=== PATIENT | male | born 1975 | race Caucasian/White ===

== ENCOUNTER 2024-12-23 06:50 | Outpatient (OUT) | payer BC, SELFPAY ==
[2024-12-23 07:29] LABS: Basophils Absolute Auto 0.1 10^3/uL (0.0-0.1); Basophils Percent Auto 1.2 % (0.2-2.0); Eosinophils Absolute Auto 0.3 10^3/uL (0.0-0.7); Eosinophils Percent Auto 4.2 % (0.9-7.0); Hematocrit 46.1 % (42.0-54.0); Hemoglobin 15.2 g/dL (14.0-18.0); Immature Granulocytes Abs Auto 0.01 10^3/uL (0.00-0.03); Immature Granulocytes Pct Auto 0.2 % (0.0-0.5); Lymphocytes Absolute Auto 2.4 10^3/uL (1.2-3.8); Mean Corpuscular Hemoglobin 27.2 pg (25.9-34.0); Mean Corpuscular Volume 82.5 fL (80.0-94.0); Mean Platelet Volume 9.3 fL (9.5-13.5); Monocytes Absolute Auto 0.6 10^3/uL (0.3-0.8); Monocytes Percent Auto 9.6 % (1.7-12.0); Neutrophils Absolute Auto 2.8 10^3/uL (1.4-6.5); Neutrophils Percent Auto 45.8 % (43.0-75.0); Platelet Count 288 10^3/uL (150-450); Red Blood Count 5.59 10^6/uL (4.70-6.10); Red Cell Distribution Width 14.2 % (11.0-15.0)
[2024-12-23 08:17] LABS: Alanine Aminotransferase 47 U/L (16-63); Albumin Globulin Ratio 1.3; Albumin Level 4.1 g/dL (3.4-5.0); Alkaline Phosphatase 64 U/L (46-116); Anion Gap 11.1; Aspartate Amino Transferase 26 U/L (15-37); BUN Creatinine Ratio 13.3; Bilirubin Total 0.5 mg/dL (0.2-1.0); Calcium 9.3 mg/dL (8.5-10.1); Carbon Dioxide 26.9 mmol/L (21.0-32.0); Chloride 107 mmol/L (98-107); Chol HDL Ratio 2.9; Cholesterol 170 mg/dL (<=200); Estimated GFR (African America >60 (>=60 mL/min/1.73m^2); Estimated GFR (Non-African Ame 56 (>=60 mL/min/1.73m^2); Globulin 3.1 g/dL; Glucose 103 mg/dL (74-106); HDL Cholesterol 59 mg/dL (40-60); LDL Cholesterol Calculated 90.6 mg/dL; Sodium 141 mmol/L (136-145); Total Protein 7.2 g/dL (6.4-8.2); Triglycerides 102 mg/dL (<=150); VLDL CHOLESTEROL 20.4 mg/dL
[2024-12-23 08:27] LABS: Prostate Specific Antigen Scrn 1.75 ng/mL (<=4.00)
== END 2024-12-23 06:51 | disposition home or self-care (01) ==
LOC: LAB 06:56
PROVIDERS: PCP Nurse Practitioner Family; Visit Provider Nurse Practitioner Family
DX: Z00.00 Encounter for general adult medical examination without abnormal findings (principal); Z12.5 Encounter for screening for malignant neoplasm of prostate
CPT/HCPCS: 36415; 80053; 80061; 85025; G0103

== ENCOUNTER 2025-05-08 12:22 | Emergency (ER) | payer BC, SELFPAY ==
--- OUTSIDE RECORDS SUMMARY | 2024-03-17 09:03 | XMS_ITS ---
Author Organization The [facility] in [place] Address [address] [place] [address] Care Team Providers Care Railroad Dining Car Stewardess Name Role Phone Liborio HUERTALucian Primary Care Provider Unavail Ulysses Santiago Unavailable [phone] REASON FOR VISIT Appointment reschedule Encounters Encounter Location Date Provider Diagnosis Pulmonary Medicine [place] [address] [place] [address] 03/17/2024 Ulysses Ward Plan Of Treatment No Information Progress Notes * Irina ROPEREliaOB:1975 ([age] yo M)Acc No.[id number]:03/17/2024 Patient: Isrrael ABRAHAM :1975 A ge:48 Y S ex:Male Address:[address], [place] [address] * true * Date: Generated for Joycelyni marty/Famikg/eTransmitting on: 0 05/08/2025 12:29 PM EDT
--- OUTSIDE RECORDS SUMMARY | 2024-06-29 04:30 | XMS_ITS ---
Author Organization [facility] in [place] Address [address] [place] [address] Care Team Providers Care Nuts And Bolts Assembler Name Role Phone Lucian Capone DO Primary Care Provider Unavail able Ulysses Ward Unavailable [phone] Allergies No Known Allergies REASON FOR VISIT F/U-1 YR. ZAKI -MSC Medications Medication SIG (Take, Route, Fr equency, Duration) Notes Start Date End Date Status Melatonin 5 MG 1 tablet in the even ing Orally Once a day for 30 day(s) 07/02/2023 Active Social History Tobacco Use: Social History Observation Description Date Details (start date - stop date) Former Smoker NA - NA Tobacco Use/Smoking Question Answer Notes Patient is a former smoker How long has it been since y ou last smoked? > 10 years Additional Findings: Tobacco Non-User Ex-heavy c igarette smoker (20-30/day) Tobacco Control (Standard) Question Answer Notes Tobacco use: Former smoker How long has it been since y ou last smoked? Greater than 10 years Additional Findings: Tobacco non-user Ex -moderate cigarette smoker (10-19/day) Vital Signs Weight 225.8 lbs 06/29/2024 Height 68 in 06/29/2024 Blood pressure systolic 133 mm Hg 06/29/20 Blood pressure diastolic 82 mm Hg 024 Temperature 96.4 degrees Fahrenheit 06/29/20 24 Heart Rate 71 /min 06/29/2024 Respiratory Rate 18 /min 06/29/2024 BMI 34.33 kg/m2 06/29/2024 Oximetry 95 % 06/29/2024 Encounters Encounter Location Date Provider Diagnosis Pulmonary Medicine [place] [address] [place] [address] 06/29/2024 Ulysses Ward ZAKI (obstructive sleep apnea) G47.33 ; REM behavioral disorder G47.52 and History of tobacco abuse Z87.891 Assessments Encounter Date Diagnosis (ICD Code) Assessment Notes Treatment Notes Treatment Clinical Notes Section Notes 06/29/2024 ZAKI (obstructive sleep apnea) (ICD-10 - G47.33) Zyoc-yx-vvar encounter performed with the patient to document continued need for PAP therapy. -Current DME: [facility]-PS03/05/2021; Initial AHI: 8-Last PAP titration: 04/30/2021 @ [id number]-Qzycrzzoia was reviewed from 05/28/2024 - 06/26/2024-Total days used: (93%)-Total of all days >4 hours of use: (93%)-Current model, mode, & pressure: AirSense 11 AutoSet CPAP [id number] AHI: 1.5-Air leak (95th percentile): 14.3L/min-Mask/taylor rness fitting: Good seal, no problem with mask-Sleep quality: Improved sleep quality (outside of pain)-Daytime hypersomnolence: None reported-Recommen dations: He continues to have a significant improvement in his sleep quality with adequate resolution of apneic episodes. No change to pressure, etc. required. Continue using CPAP @ HS & naps. -Note: This wgoh-yj-papg visit comes with my authorization that the patient's DME may request to renew, reorder, and/or replace tubing, supplies, mask, and/or PAP device (if applicable). 06/29/2024 REM behavioral disorder (ICD-10 - G47.52) He continues to take melatonin. 06/29/2024 History of tobacco abuse (ICD-10 - Z87.891) 1ppd x15 years, quit 2010 This patient does not meet current LDCT criteria (e.g. age, time from cessation, # pack-years). Plan Of Treatment Treatment Notes Assessment Notes ZAKI (obstructive sleep apnea) Mxko-sl-nguc encounter performed with the patient to document continued need for PAP therapy. -Current DME: [facility]-PS03/05/2021; Initial AHI: 8-Last PAP titration: 04/30/2021 @ [id number] was reviewed from 05/28/2024 - 06/26/2024-Total days used: (93%)-Total of all days >4 hours of use: (93%)-Current model, mode, & pressure: AirSense 11 AutoSet CPAP [id number] AHI: 1.5-Air leak (95th percentile): 14.3L/min-Mask/harness fitting: Good seal, no problem with mask-Sleep quality: Improved sleep quality (outside of pain)-Daytime hypersomnolence: None reported-Recommendations: He continues to have a significant improvement in his sleep quality with adequate resolution of apneic episodes. No change to pressure, etc. required. Continue using CPAP @ HS & naps. -Note: This xfrv-si-gapc visit comes with my authorization that the patient's DME may request to renew, reorder, and/or replace tubing, supplies, mask, and/or PAP device (if applicable). REM behavioral disorder He continues to take melatonin. History of tobacco abuse This patient does not meet current LDCT criteria (e.g. age, time from cessation, # pack-years). Next Appt Details Follow Up: 1 Year, Reason: O SA - PAP Compliance Progress Notes * Pepper ROPEROB:1975 ([age] yo M)Acc No.[id number]:06/29/2024 Follow Up Patient: Isrrael ABRAHAM Provider: Carmela Ward DO :1975 A ge:49 Y S ex:Male Date:06/29/2024 Address:[address] [place] [address] [address], [facility] Pcp:Lucian Capone, DO Check In:08:17 AM ESTCheck O ut:08:34 AM EST Subjective: * Chief Complaints: * F /U-1 YR. ZAKI -MSC * HPI: G eneral: Here for 1 year PAP compliance. He is doing great on the CPAP. Has excellent compliance. Voices no issues with the pressure, mask, leak, etc. He does wake up at night sometimes, but it is due to leg pain (has patellar tendonitis) not d/t gasping or snoring. Denies any daytime hypersomnia or having to take naps. Overall, he said he is very happy with the CPAP. MA Intake Comments:. Patient presents for a follow-up for ZAKI. DME:[facility]. Patient is compliant with his PAP and denies any concerns or complaints today. Patient denies any issues or concerns with his machine. Patient reports great benefit from his PAP.. E pworth Sleepiness Scale: Koppel Sleepiness Scale C lonnie of dozing while sitting and reading:?0 - Never C lonnie of dozing while watching TV: 0 - Never C lonnie of dozing while sitting in a public place: 0 - Never C lonnie of dozing as a passenger in a car for an hour without a break: 0 - Never C lonnie of dozing while lying down in the afternoon to rest: 0 - Never C lonnie of dozing while sitting and talking to someone: 0 - Never C lonnie of dozing while sitting quietly after lunch: 0 - Never C lonnie of dozing in a stopped car for a few minutes in traffic: 0 - Never T OTAL SCORE: 0 * ROS: G eneral/Constitutional: Fever or sweats d enies. C hange of appetite d enies. C hills d enies. W eight Change d enies. H EENT: Dry mouth d enies. S ore throat d enies. O ral Ulcers d enies. P ost Nasal Drip D enies. C ongestion D enies. H oarseness?Denies. C ardiovascular: Tachycardia d enies. C hest pain d enies. P alpitations d enies. R espiratory: Chest tightness d enies. P leurisy D enies. D yspnea d enies. C ough d enies. H emoptysis d enies. W heezing d enies.? G astrointestinal: Acid Reflux/GERD/Heartburn d enies. D ysphagia d enies. M usculoskeletal: Arthralgias/joint pain D enies. S kin: Easy bruising d enies. R meli d enies. ? N eurologic: Seizures d enies. T remor d enies. H ematology: Abnormal Bleeding d enies. P sychiatric: Anxiety d enies. * Active Problem List G47.33 ZAKI (obstructive sle ep apnea) Modified On:07/02/2023U Status:confirmed G47.52 REM behavioral disor tomas Modified On:07/02/2023U Status:confirmed Z87.891 History of tobacco a buse Modified On:07/02/2023 Status:confirmed * Medical History: * Surgical History: D enies Past Surgical History * Hospitalization/Major Diagno stic Procedure: D enies Past Hospitalization * Family History: F ather: COPD, diagnosed with Unspecified heart disease. P aternal Grandfather: diagnosed with Unspecified heart disease. P aternal Grandmother: diagnosed with Diabetes mellitus without mention of complication, type II or unspecified type, not stated as uncontrolled. M aternal Grandmother: diagnosed with Diabetes mellitus without mention of complication, type II or unspecified type, not stated as uncontrolled. * Social History: T obacco Use: T obacco Control (Standard) T obacco use: F ormer smoker H ow long has it been since you last smoked??Greater than 10 years A dditional Findings: Tobacco non-user E x-moderate cigarette smoker (10-19/day) Electronic Cigarette use C urrent user N o LM: Additional Tobacco Questions N umber of Years Pt Smoked: 1 5 N umber of Packs per Day: 1 When did you stop smokin. 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 D rugs/Alcohol: D rugs H ave you used drugs other than those for medical reasons in the past 12 months? N o D oes the Patient have a History of Drug Abuse in the Past? N o Caffeine I ntake: 1 -2 cups per day Coffee Do you drink alcohol?: No. Do you smoke marijuana?: Denies. * Medications: T akingMelatonin 5 MG Tablet 1 tablet in the evening Orally Once a day Medication List reviewed and reconciled with the patientTaking Melatonin 5 MG Tablet 1 tablet in the evening Orally Once a day Medication List reviewed and reconciled with the patient * Allergies: N .K.D.A.no[Allergies Verified] Objective: * Vitals: W t:225.8lbs, Ht: 68 in, BP:sittin/82mm Hg, Temp:Forehead:96.4F, HR:71/min, RR:18/min, BMI:34.33Index, Oxygen sat %:Room Air:95%, Ht-cm: 172.72 cm, Wt-k.42 kg. * Examination: E xam: GENERAL APPEARANCE: A ppears stated age. Skin N ormal. Mouth P ink and moist. Oropharynx M allampati Class III. Trachea M idline. Chest N ormal. Respiratory Normal M ovements, E ffort N ormal. Auscultation N ormal breath sounds. Cardiac R egular rate and rhythm. Gastrointestinal N ormal. Vascular N o edema. Musculoskeletal N ormal posture. Neurological F ocal, intact. Psychiatric A lert and oriented x3. Mentation/Cognition N ormal. Assessment: * Assessment: 1. O SA (obstructive sleep apnea) - G47.33 (Primary) 2 . R EM behavioral disorder - G47.52 3 . H istory of tobacco abuse - Z87.891, 1ppd x15 years, quit 2010 Plan: * Treatment: 2. R EM behavioral disorder Notes: He continues to take melatonin. 3. H istory of tobacco abuse Notes: This patient does not meet current LDCT criteria (e.g. age, time from cessation, # pack-years).? * Procedure Codes: * Preventive Medicine: COVID Vaccination: H as patient had COVID Vaccination? COVID Vaccination N o Patient Refused Immunization Status: P neumovacc P t Refused. I nfluenza P t Refused. B oostrix 0 12/27/2015. Screenings/Counseling: F ALL RISK SCREENING Fall Risk Assessment: N o falls in the past year Are you afraid of falling? N o T OBACCO ACTION PLAN Patient counselled on the dangers of tobacco use and urged to quit. 1 Former Education on smoking effects provided?06/29/2024 Former F CHRISTIAN EXCLUSION Reason: P atient Reason refused/declined Type of Patient Reason: D rug declined by patient B [place] ACTION PLAN Above Normal BMI Follow-up D ietary management education, guidance, and counseling * Follow Up: 1 Year (Reason: ZAKI - PAP Compliance) * * Sign off status: Completed Visit Status: C HK (Check Out) true * Provider: Carmela Ward DO Date: 1 Generated for Printi ng/Famikg/eTransmitting on: 0 05/08/2025 12:29 PM EDT History and Physical Notes * HPI (History of Present Illness) Category Sub-Category Detail Notes Category Not es General Patient present s for a follow-up for ZAKI. DME:[facility]. Patient is compliant with his PAP and denies any concerns or complaints today. Patient denies any issues or concerns with his machine. Patient reports great benefit from his PAP. Koppel Sleepiness Scale Koppel Sleepiness Scale Chance of dozing while sitting and reading:: 0 - Never Chance of dozing while watching TV:: 0 - Never Chance of dozing while sitting in a publ ic place:: 0 - Never Chance of dozing as a passen reji in a car for an hour without a break:: 0 - Never Chance of dozing while lying down in the afternoon to rest:: 0 - Never Chance of dozing while sitting and talki ng to someone:: 0 - Never Chance of dozing while sitting quietly a fter lunch:: 0 - Never Chance of dozing in a stopped car for a few minutes in traffic:: 0 - Never TOTAL SCORE:: 0 Examination Category Sub-Category Detail Notes Category Not es Exam GENERAL APPEARANCE: Appears stated age Skin Normal Mouth [place] and moist Trachea Midline Chest Normal Respiratory Normal Movements, Ef fort Normal Auscultation Normal breath sounds Cardiac Regular rate and rhy thm Gastrointestinal Normal Vascular No edema Musculoskeletal Normal posture Neurological Focal, intact Psychiatric Alert and oriented x 3 Mentation/Cognition Normal Oropharynx Mallampati Class III
--- OUTSIDE RECORDS SUMMARY | 2024-06-30 04:00 | XMS_ITS ---
Author Organization The [facility] in [place] Address [address] [place] [address] Care Team Providers Care Tray Setter Name Role Phone Lucian Capone DO Primary Care Provider Unavail Ulysses Santiago Unavailable [phone] REASON FOR VISIT F/U-1 YR. ZAKI -MSC Encounters Encounter Location Date Provider Diagnosis Pulmonary Medicine [place] [address] [place] [address] 06/30/2024 Ulysses Ward Plan Of Treatment No Information Progress Notes * Pepper ROPEROB:1975 ([age] yo M)Acc No.[id number]:06/30/2024 UNLOCKED PROGRESS NOTE Follow Up Patient: Isrrael ABRAHAM Provider: Carmela Ward DO :1975 A ge:49 Y S ex:Male Date:06/30/2024 Address:[address] [facility] Pcp:Lucian Capone DO Subjective: * Chief Complaints: * 1 . F/U-1 YR. ZAKI -MSC. * Medical History: Objective: * Vitals: Assessment: Plan: * Treatment: * * Electronic signature of Chata Ward DO on 05/08/2025 at 12:29 PM EDT Sign off status: Pending Visit Status: O FF CANC (OFFICE CANCEL) * Provider: Carmela Ward DO Date: Generated for Printi ng/Fabio/Annaitting on: 0 05/08/2025 12:29 PM EDT
--- OUTSIDE RECORDS SUMMARY | 2025-03-30 07:47 | XMS_ITS ---
Author Organization The [facility] in [place] Address [address] [place] [address] Care Team Providers Care Map Compiler Name Role Phone Capone Lucian HUERTA Primary Care Provider Unavail Ulysses Santiago Unavailable [phone] REASON FOR VISIT Return Mail/Appointment Encounters Encounter Location Date Provider Diagnosis Pulmonary Medicine [place] [address] [place] [address] 03/30/2025 Ulysses Ward Plan Of Treatment No Information Progress Notes * Pepper ROPEROB:1975 ([age] yo M)Acc No.[id number]:03/30/2025 Patient: Isrrael ABRAHAM :1975 A ge:49 Y S ex:Male Address:[address] [facility], [place] [address] * true * Date: Generated for Printi ng/Faxing/eTransmitting on: 0 05/08/2025 12:29 PM EDT
[2025-05-08] VITALS (17 sets, daily range): BP systolic 106–138; BP diastolic 59–86; PULSE 65–103; TEMP 36.8; O2SAT 94–98; BMI 34.2
--- OUTSIDE RECORDS SUMMARY | 2025-05-08 12:29 | XMS_ITS | Patient Health Record ---
Author Organization [facility] in [place] Address [address] [place] [address] Care Team Providers Care Warehouse Processor Name Role Phone Lucian Capone DO Primary Care Provider Unavail able Ulysses Ward Unavailable [phone] Allergies No Known Allergies Reason For Referral No Information Medications Medication SIG (Take, Route, Fr equency, Duration) Notes Start Date End Date Status Melatonin 5 MG 1 tablet in the even ing Orally Once a day for 30 day(s) 07/02/2023 Active Immunizations Vaccine Route Administration Date Status Comme nts Tdap (Boostrix) Unknown 12/27/2015 Administered Social History Tobacco Use: Social History Observation [...] Tobacco non-user Ex -moderate cigarette smoker (10-19/day) Problems Problem Type SNOMED Code ICD Code Onset Dates Problem Status W/U Status Risk Notes Problem Obstructive sleep apnea syndrome (35676117) ZAKI (obstructive sleep apnea) (G47.33) Active confirmed Problem Rapid eye movement sleep behavior disorder (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) REM behavioral disorder (G47.52) Active confirmed Problem Ex-tobacco user (finding) (617815981) History of tobacco abuse (Z87.891) Active confirmed 1ppd x15 years, quit 2010 Vital Signs Heart Rate 71 /min 06/29/2024 Temperature 96.4 degrees Fahrenheit 06/29/2024 Respiratory Rate 18 /min 06/29/2024 Oximetry 95 % 06/29/2024 Blood pressure diastolic 82 mm Hg 06/29/2024 Height 68 in 06/29/2024 Blood pressure systolic 133 mm Hg 06/29/2024 Weight 225.8 lbs 06/29/2024 BMI 34.33 kg/m2 06/29/2024 Encounters Encounter Location Date Provider Diagnosis Pulmonary Medicine [place] [address] [place] [address] 03/30/2025 Ulysses [facility] Pulmonary Medicine [place] [address] [place] [address] 06/29/2024 Ulysses Sylvia ZAKI (obstructive sleep apnea) G47.33 ; REM behavioral disorder G47.52 and History of tobacco abuse Z87.891 Assessments Encounter Date Diagnosis (ICD Code) Assessment Notes Treatment Notes Treatment Clinical Notes Section Notes 06/29/2024 ZAKI (obstructive sleep apnea) (ICD-10 - G47.33) Bgub-qz-pwkj encounter performed with the patient to document continued need for PAP therapy. -Current DME: [facility]-PS03/05/2021; Initial AHI: 8-Last PAP titration: 04/30/2021 @ [id number] was reviewed from 05/28/2024 - 06/26/2024-Total days used: 28/30 (93%)-Total of all days >4 hours of use: 28/30 (93%)-Current model, mode, & pressure: AirSense 11 AutoSet CPAP [id number] AHI: 1.5-Air leak (95th percentile): 14.3L/min-Mask/taylor rness fitting: Good seal, no problem with mask-Sleep quality: Improved sleep quality (outside of pain)-Daytime hypersomnolence: None reported-Recommen dations: He continues to have a significant improvement in his sleep quality with adequate resolution of apneic episodes. No change to pressure, etc. required. Continue using CPAP @ HS & naps. -Note: This wdgh-wb-jenn visit comes with my authorization that the [...] from cessation, # pack-years). Plan Of Treatment No Information Insurance Providers Payer Name Payer Address Payer Phone Subscriber Number Group Number Insured Name Patient Relationship to Insured Coverage Start Date Coverage End Date [employer] [address] [place] [address] [id number] [place], Isrrael Self - patient is the insured Medical (General) History Medical History History ICD Code ZAKI (obstructive sleep apnea) G47.33 REM behavioral disorder G47.52 History of tobacco abuse Z87.891
--- OUTSIDE RECORDS SUMMARY | 2025-05-08 12:30 | XMS_ITS | CCD ---
Author Organization [facility] Care Team Providers Care Job Site Supervisor Name Role Phone CARLEE LEMUS Attending Unavailable SAMSA, CARLEE Admitting Unavailable SAMCARLEE STEIN Attending Unavailable ALLAN, CARLEE Admitting Unavailable Lucian Capone III Primary Care Physician Lucian Capone Attending Unavailable Lucian Capone Admitting Unavailable MARCELLUS CASTANEDA Attending Unavailable MARCELLUS CASTANEDA Attending Unavailable Medications Current Medications Medication Drug Class(es) Dates Sig (Normalized) Sig (Original) Acetaminophen / HYDROcodone (2 sources) Opioid Agonist Start: 07-19-2012 Vicodin 500 mg-5 mg Tab 0, 1 tab(s), Oral, q6hr, 20 tab(s), Refill(s) 0, 0, Take one tab by mouth every six hours as needed for pain, Print Requisition Start Date: 07/19/12 Status: Ordered melatonin 5 mg oral capsule (2 sources) Start: 12-21-2024 take 1 capsule by mouth once daily at bedtime Melatonin 5 mg capsule Active 5 MG PO Daily at bedtime December 21, 2024 12:00am naproxen 500 mg oral tablet (2 sources) Nonsteroidal Anti-inflammatory Drug Start: 07-19-2012 take 1 tablet by mouth twice daily Naprosyn 500 mg Tab 500 mg = 1 tab(s), Oral, BID, # 20 tab(s), Refills(s) 0, 0, Print Requisition Start Date: 07/19/12 Status: Ordered Problems Problem Classification Problem Date Documented Da te Episodic/Chronic Other nutritional; endocrine; and metabolic disorders (1 source) Body mass index 30+ - obesity; Translations: [Obesity, unspecified] 12-21-2024 Chronic Other nutritional; endocrine; and metabolic disorders (1 source) Obesity, unspecified; Translations: [Obesity, unspecified] 12-21-2024 Chronic Other screening for suspected conditions (not mental disorders or infectious disease) (6 sources) Patient encounter status; Translations: [Encounter for screening for malignant neoplasm of prostate] 12-21-2024 Episodic Residual codes; unclassified (4 sources) Obstructive sleep apnea (adult) (pediatric); Translations: [OBSTRUCTIVE SLEEP APNEA] Onset: 04-30-2021 Chronic Residual codes; unclassified (1 source) Idiopathic hypersomnia with long sleep time; Translations: [IDIO HYPERSOMNIA W/LONG SLEEP TIME] Onset: 03-07-2021 Chronic Residual codes; unclassified (2 sources) Obstructive sleep apnea syndrome; Translations: [Obstructive sleep apnea (adult) (pediatric)] 12-21-2024 Chronic Results Test Name Value Interpretation Reference Range Facil ity Basophils Auto (Bld) [#/Vol] on 12-23-2024 Basophils (Bld) [#/Vol] Automated basophil count 0.0-0.1 [facility] Basophils/100 WBC Auto (Bld) on 12-23-2024 Basophils/100 WBC (Bld) Automated basophil % 0.2-2.0 [facility] Cholesterol in LDL Calc [Mas s/Vol]on 12-23-2024 Cholesterol in LDL [Mass/Vol] Cholesterol in LDL [Mass/volume] in Serum or Plasma by calculation [facility] Comment on above: <100 mg/dl [id number] 0-129 mg/dl NEAR OR ABOVE [id number] mg/dl BORDERLINE [id number] mg/dl HIGH>190 mg/dl VERY HIGH Cholesterol in VLDL Calc [Ma ss/Vol]on 12-23-2024 Cholesterol in VLDL [Mass/Vol] Cholesterol in VLDL [Mass/volume] in Serum or Plasma by calculation [facility] Eosinophils/100 WBC Auto (Bl d)on 12-23-2024 Eosinophils/100 WBC (Bld) Automated eosinophil % 0.9-7.0 [facility] Erythrocyte distribution wid th Auto (RBC) [Ratio]on 12-23-2024 Erythrocyte distribution width (RBC) [Ratio] Erythrocyte distribution width [Ratio] by Automated count 11.0-15.0 [facility] Estimated glomerular filtrat ion rate (GFR) non- Americanon 12-23-2024 GFR/1.73 sq M.predicted among non-blacks MDRD (S/P/Bld) [Vol rate/Area] Estimated glomerular filtration rate (GFR) non- Low >=60 mL/min/1.73m 2 [facility] Globulin Calc (S) [Mass/Vol] on 12-23-2024 Globulin (S) [Mass/Vol] Serum globulin measurement by calculation (mass/volume) [facility] Hematocrit Auto (Bld) [Volum e fraction]on 12-23-2024 Hematocrit (Bld) [Volume fraction] Hematocrit [Volume Fraction] of Blood by Automated count 42.0-54.0 [facility] Hemoglobin [Mass/volume] in Bloodon 12-23-2024 Hemoglobin (Bld) [Mass/Vol] Hemoglobin [Mass/volume] in Blood 14.0-18.0 [facility] Laboratory - Chemistry and C hemistry - challengeon 12-23-2024 Albumin [Mass/Vol] 4.1 g/dL 3.4-5.[address] [facility] ALP [Catalytic activity/Vol] 64 U/L 46-116 [facility] ALT [Catalytic activity/Vol] 47 U/L 16-63 [facility] AST [Catalytic activity/Vol] 26 U/L 15-37 [facility] Bilirubin [Mass/Vol] 0.5 mg/dL 0.2-1.0 [facility] Calcium [Mass/Vol] 9.3 mg/dL 8.5-10.[address] [facility] Chloride [Moles/Vol] 107 mmol/L 98-107 [facility] Cholesterol [Mass/Vol] 170 mg/dL <=200 [facility] Cholesterol in HDL [Mass/Vol] 59 mg/dL 40-60 [facility] Comment on above: > or =60 mg/dl - LOW CARDIOVASCULAR RISK<40 mg/dl - HIGH CARDIOVASCULAR RISK CO2 [Moles/Vol] 26.9 mmol/L 21.0-32.0 [facility] Creatinine [Mass/Vol] 1.35 mg/dL High 0.70-1.30 [facility] GFR/1.73 sq M.predicted MDRD (S/P/Bld) [Vol rate/Area] mL/min/{1.73_m2} >=60 mL/min/1.73m 2 [facility] Glucose [Mass/Vol] 103 mg/dL 74-[address] [facility] Potassium [Moles/Vol] 4.0 mmol/L 3.5-5.1 [facility] Protein [Mass/Vol] 7.2 g/dL 6.4-8.[address] [facility] Sodium [Moles/Vol] 141 mmol/L 136-[address] [facility] Triglyceride [Mass/Vol] 102 mg/dL <=150 [facility] Urea nitrogen [Mass/Vol] 18.0 mg/dL 7.0-18.0 [facility] Urea nitrogen/Creatinine [Mass ratio] 13.3 mg/mg [facility] Laboratory - Hematology and Cell countson 12-23-2024 Immature granulocytes/100 WBC (Bld) 0.2 % 0.0-0.5 [facility] Leukocytes [#/volume] correc eleno for nucleated erythrocytes in Blood by Automated counon 12-23-2024 WBC corrected for nucl RBC Auto (Bld) [#/Vol] Leukocytes [#/volume] corrected for nucleated erythrocytes in Blood by Automated coun 4.0-11.0 [facility] Lymphocytes Auto (Bld) [#/Vo l]on 12-23-2024 Lymphocytes (Bld) [#/Vol] Lymphocytes [#/volume] in Blood by Automated count 1.2-3.8 [facility] Lymphocytes/100 WBC Auto (Bl d)on 12-23-2024 Lymphocytes/100 WBC (Bld) Lymphocytes/100 leukocytes in Blood by Automated count 20.5-60.0 [facility] MCH Auto (RBC) [Entitic mass ]on 12-23-2024 MCH (RBC) [Entitic mass] MCH [Entitic mass] by Automated count 25.9-34.0 [facility] MCHC Auto (RBC) [Mass/Vol]on 12-23-2024 MCHC (RBC) [Mass/Vol] MCHC [Mass/volume] by Automated count 29.9-35.2 [facility] MCV Auto (RBC) [Entitic vol] on 12-23-2024 MCV (RBC) [Entitic vol] MCV [Entitic volume] by Automated count 80.0-94.0 [facility] Monocytes Auto (Bld) [#/Vol] on 12-23-2024 Monocytes (Bld) [#/Vol] Automated blood monocyte count 0.3-0.8 [facility] Monocytes/100 WBC Auto (Bld) on 12-23-2024 Monocytes/100 WBC (Bld) Automated monocyte % 1.7-12.0 [facility] Neutrophils Auto (Bld) [#/Vo l]on 12-23-2024 Neutrophils (Bld) [#/Vol] Neutrophils [#/volume] in Blood by Automated count 1.4-6.5 [facility] Neutrophils/100 WBC Auto (Bl d)on 12-23-2024 Neutrophils/100 WBC (Bld) Automated neutrophil % 43.0-75.0 [facility] No Panel Informationon 12-23 Eosinophils # (Auto) 0.3 10 3/uL 0.0-0.7 [facility] Immature Granulocyte # (Auto) 0.01 10 3/uL 0.00-0.03 [facility] Prostate Specific Antigen Screen 1.75 ng/mL <=4.00 [facility] Platelet mean volume Auto (B ld) [Entitic vol]on 12-23-2024 Platelet mean volume (Bld) [Entitic vol] Platelet mean volume [Entitic volume] in Blood by Automated count Low 9.5-13.5 [facility] Platelets Auto (Bld) [#/Vol] on 12-23-2024 Platelets (Bld) [#/Vol] Platelets [#/volume] in Blood by Automated count 150-450 [facility] RBC Auto (Bld) [#/Vol]on RBC (Bld) [#/Vol] Erythrocytes [#/volume] in Blood by Automated count 4.70-6.10 [facility] Serum or plasma albumin/glob ulin mass ratioon 12-23-2024 Albumin/Globulin [Mass ratio] Serum or plasma albumin/globulin mass ratio [facility] Serum or plasma anion gap de terminationon 12-23-2024 Anion gap [Moles/Vol] Serum or plasma anion gap determination [facility] Serum or plasma total choles terol/high density lipoprotein (HDL) cholesterol mass bonifacio 12-23-2024 Cholesterol.total/Cho lesterol in HDL [Mass ratio] Serum or plasma total cholesterol/high density lipoprotein (HDL) cholesterol mass [facility] Comment on above: 3.3 - 4.4 LOW RISK4. 4 - 7.1 AVERAGE RISK7.1 - 11.0 MODERATE RISK>11.0 HIGH RISK XR Shoulder Complete Lefton 02-08-2023 XR Shoulder Complete Left Exam Date/Time: 02/05/2023 09:24 EDT Reason for Exam: M25.512 Report IMPRESSION: NEGATIVE LEFT SHOULDER. CLINICAL HISTORY: M25.512 COMPARISON: NONE FINDINGS: AP, internal, external rotation, Y and axillary views of the left shoulder demonstrate no evidence of a fracture, dislocation, bone or joint abnormality. Ordering Provider: Lucian Capone FINAL REPORT Dictated: 02/08/2023 10:37 am Дмитрий Silvestre MD Signed (Electronic Signature): 02/08/2023 10:37 am Signed by: Дмитрий Silvestre MD Transcribed by: WEI Technologist: KAITLIN Technical Comments Radiation Dose: Ka,r in mGy = na DAP = na [facility] Consent for Treatmenton Consent for Treatment [id number] #1.00CD:127 [facility] Physician Orderon 02-05-2023 Physician Order [id number] 6#1.00CD:127 [facility] Vital Signs Date Time Vital Sign Value Performing Clinician Yolis jacobson 12-21-2024 08:51-0400 Body height 172.72 cm [facility] 12-21-2024 08:51-0400 Body mass index (BMI) [Ratio] 36.2 kg/m2 [facility] 12-21-2024 08:51-0400 Body temperature 97.6 [degF] [facility] 12-21-2024 08:51-0400 Body weight 108.18 kg [facility] 12-21-2024 08:51-0400 Diastolic blood pressure 68 mm[Hg] [facility] 12-21-2024 08:51-0400 Heart rate 77 /min [facility] 12-21-2024 08:51-0400 SaO2% (BldA) [Mass fraction] 97 % [facility] 12-21-2024 08:51-0400 Systolic blood pressure 118 mm[Hg] [facility] Encounters Encounter Date Encounter Type Care Provider Facility Start: 01-03-2025 End: 01-03-2025 ambulatory [facility] Work Phone: Start: 01-03-2025 End: 01-03-2025 Patient encounter procedure [facility] Work Phone: Start: 12-23-2024 Non-patient / Non-visit [facility] Work Phone: Start: 12-21-2024 Patient encounter status [facility] Start: 12-21-2024 End: 12-21-2024 ambulatory [facility] Work Phone: Start: 12-21-2024 End: 12-21-2024 Encounter for general adult medical examination without abnormal findings [facility] Start: 12-21-2024 End: 12-21-2024 Patient encounter procedure [facility] Work Phone: Start: 12-16-2023 End: 12-16-2023 ambulatory MARCELLUS L LEONEL Not Available Start: 09-23-2023 End: 09-23-2023 ambulatory MARCELLUS L LEONEL Not Available Start: 02-10-2023 End: 02-11-2023 Pre-admission assessment Lucian Capone III [facility] Start: 02-05-2023 End: 02-06-2023 ambulatory Lucian Capone Facility[facility] Start: 02-05-2023 End: 02-05-2023 Patient encounter procedure Lucian Capone III [facility] Start: 04-30-2021 End: 05-01-2021 ambulatory CARLEE LEMUS Facility:[facility] Start: 03-05-2021 End: 03-06-2021 ambulatory CARLEE [facility] Facility:[facility] Plan of Treatment Date Care Activity Detail Author Comprehensive metabo lic 1999 panel - Serum or Plasma [facility] enter [facility] Payers Date Payer Category Payer Unknown [id number] 1975 Unknown [id number] [id number] [id number] 1975 Unknown [id number] [id number] [id number] 1975 Unknown [id number] 1975 Unknown [id number] [id number] [id number] 1975 Unknown [id number] 2.16.84 [id number] 1959 Private Health Insurance [id number] Social History Date Type Detail Facility Tobacco smoking status No Smokin g Status Entered [facility] Sex Assigned At Male [facility] Tobacco smoking stat [facility] Unknown if ever smoked [facility] Work Phone: Start: 12-21-2024 End: 01-03-2025 Sex Male (finding) [facility] Start: 1975 Sex Assigned At Male F [facility] Evaluation note 12-21-2024 Note Date & Type Note Facility 12-21-2024 Evaluation note Diagnosis Onset Date Resolution Obesity (BMI 30-39.9) acute Apr 2024 8:45am Screening for colon cancer acute December 21, 2024 8:45am Screening PSA (prostate specific antigen) acute December 21 8:45am Wellness examination acute Apri [facility] 2024 8:45am [facility] Work Phone: Evaluation + Plan note Note Date & Type Note Facility Evaluation + Plan note Future Appointments Appointment Date:02/10/2023 10:15:00 AM Scheduled Provider: Location:[place] Appointment Type:PT Eval (FT) [facility] Evaluation note Note Date & Type Note Facility Evaluation note Diagnosis Onset Date Resolution Screening PSA (prostate specific antigen) acute December 21 8:45am Wellness examination acute [facility] 2024 8:45am [facility] Work Phone: Hospital course Narrative Note Date & Type Note Facility Hospital course Narrative No data available for this section [facility] Hospital Discharge instructions Note Date & Type Note Facility Hospital Discharge instructions No data available for this section [facility] Progress note Note Date & Type Note Facility Progress note No data available for this section [facility] Summary Purpose Family History No Family History Records FoundNo Family History Records FoundNo Family History Records Found Advance Directives Advance Directive Response Recorded Date/ Time Advance Directives No April 23, 2018 11:13am Chief Complaint and Reason for Visit Chief Complaint Admit Date establish December 21, 2024 8:4 5am Reason for Visit Admit Date Screening PSA (prostate specific antigen ) December 21, 2024 8:45am Wellness examination December 21, 2024 8: 45am Chief Complaint Admit Date establish December 21, 2024 8:4 5am A1C Check January 03, 2025 12: 08pm Reason for Visit Admit Date Obesity (BMI 30-39.9) December 21, 2024 8 :45am Screening for colon cancer December 21 8:45am Screening PSA (prostate specific antigen ) December 21, 2024 8:45am Wellness examination December 21, 2024 8: 45am Additional Source Comments (unrecognized sect ion and content) No Status Records FoundNo Status Records FoundNo Status Records Found INFORMATION SOURCE (unrecogn ized section and content) DATE CREATED AUTHOR 05/09/2021 Billy Sarmiento [facility] DATE CREATED AUTHOR AUTHOR'S ORGANIZ ATION 02/16/2023 [facility] DATE CREATED AUTHOR AUTHOR'S ORGANIZ ATION 12/17/2023 [facility] EPIC Patient Care team informatio n (unrecognized section and content) Team Status: Active Member Role Status Dates Lucian R Capone III , DO Primary Care Provider Active Team Status: Inactive Member Role Status Dates Lucian Thomasers III , DO Primary Care Provider Active Start: December 21, 2024 End: December 21, 2024 JENNIFER Joyce Attending Provider Act loyda Start: December 21, 2024 End: December 21, 2024 Team Status: Active Member Role Status Dates Valarie Lovelace APRN [employer]ERSON[employer]iel Primary Care Provider Active Team Status: Active Member Role Status Dates Lucian Kenny Capone III , DO Primary Care Provider Active Start: December 23, 2024 JENNIFER Joyce Attending Provider Act loyda Start: December 23, 2024 Team Status: Inactive Member Role Status Dates Valarie Lovelace APRN [employer]-Jeferson Primary Care Provider, Attending Provider Active Start: January 03, 2025 End: January 03, 2025 Goals (unrecognized section and content) Goals may be documented in a n alternate section FOR RECORDS PERTAINING TO PATIENTS WHO ARE OR HAVE BEEN ENROLLED IN A CHEMICAL DEPENDENCY/SUBSTANCEABUSE PROGRAM, SOME INFORMATION MAY BE OMITTED. This clinical summary was aggregated from multiple sources. Caution should be exercised in using it in the provision of clinical care. This summary normalizes information from multiple sources, and as a consequence, information in this document may materially change the coding, format and clinical context of patient data. In addition, data may be omitted in some cases. CLINICAL DECISIONS SHOULD BE BASED ON THE PRIMARY CLINICAL RECORDS. [facility]. provides no warranty or guarantee of the accuracy or completeness of information in this document.
[2025-05-08] MEDS: METHYLPREDNISOLONE SOD SUCC PF 125 MG/2 ML VIAL IVP (12:41)
[2025-05-08] MEDS: FAMOTIDINE/PF 20 MG/2 ML VIAL IV (12:42)
[2025-05-08] MEDS: DIPHENHYDRAMINE HCL 50 MG/ML VIAL 25 MG IVP (12:42)
[2025-05-08] MEDS: 0.9 % SODIUM CHLORIDE 1,000 ML 1000 ML IV (12:59)
--- NOTE | 2025-05-08 13:37 | ECG_ITS ---
[facility] Test Date: 2025-05-08 Pat Name: LESLEE MAST Department: Room: - Gender: Male Overnight Associate: : 1975 Requested By: [id number] Order Number: [id number] Reading MD: DIPESH BENNETT Measurements Intervals [place] Rate: 74 P: 42 OK: 142 QRS: -30 QRSD: 86 T: 21 QT: 360 QTc: 387 Interpretive Statements 1100 Sinus rhythm 7202 Moderate left axis deviation 9110 normal ECG No previous ECG available for comparison Electronically Signed On 05-10-2025 13:45:00 EDT by DIPESH BENNETT
--- NOTE | 2025-05-08 13:37 | ED_ITS ---
HPI - Allergic Reaction General Chief complaint: Allergic Reaction Stated complaint: STUNG BY 3 BEES, HIVES/RASH Time Seen by Provider: 05/08/25 12:33 Source: patient and family Mode of arrival: walk-in Limitations: no limitations History of Present Illness HPI narrative: The patient is coming to the ER after he was just stung by 3 bees when he was outside, patient does not have any tongue swelling or difficulty breathing but he had been stung by the bee in 3 places one of them is his right lower lip, also his right arm The patient denies any allergy to bee stings before, there is no difficulty breathing but there is a hives all over his body and itching Patient also started vomiting when he came to the ER Related Data Previous Rx's ?Medication ?Instructions ?Recorded diphenhydramine HCl 25 mg capsule 25 mg PO Q8H #10 cap s 05/08/25 epinephrine 0.3 mg/0.3 mL 0.3 mg (0.3 mL) IM ONCE PRN 05/08/25 injection, auto-injector (EpiPen) allergic symptoms #2 ea famotidine 20 mg tablet (Pepcid) 20 mg PO BID #10 tabs 05/08/25 prednisone 20 mg tablet 40 mg (2 x 20 mg) PO DAILY 5 days 05/08/25 #10 tabs Allergies Allergy/AdvReac Type Severity Reaction Status Date / Time No Known Drug Allergies Allergy Verified 05/08/25 12:30 Review of Systems ROS Status of ROS 10 or more systems reviewed and unremark able except as noted in history and below PFSH PFSH Social History Little interest or pleasure in doing things: not at all Feeling down, depressed, or hopeless: not at all Exam Narrative Exam Narrative: Nurses notes and vital signs reviewed and patient is not hypoxic. General: Well-appearing and in no apparent distress. Skin: The patient skin shows extensive right as well as posterior back and abdomen hives maculopapular rash Head: Normocephalic, atraumatic. Neck: Supple, non-tender. Eye: Pupils are equal, round and EOMI. No scleral icterus. Ears, Nose, Mouth, and Throat: TM are clear, no nasal mucosal hypertrophy. Oral mucosa is moist, no posterior oropharynx erythema, uvula is mid-line, there is a small bee sting to the right lower lip there is no swelling of the tongue or the airway and the patient airway is not compromised Clear speech and breathing Cardiovascular: Regular Rate and Rhythm without murmur, gallop or rub. Respiratory: No accessory muscle use or respiratory distress. Lungs are clear to auscultation, no wheezing, rales or rhonchi Chest Wall: no tenderness Back: No midline thoracic or lumbar vertebral tenderness. No CVA tenderness Musculoskeletal: normal ROM, no calf or popliteal tenderness, no lower extremity edema/swelling GI: Abdomen is soft, non-distended. Normal bowel sounds. No masses appreciated. No tenderness to palpation. No rebound, guarding, or rigidity noted. Neurological: A&O x4. No cranial nerve dysfunction observed. No truncal ataxia. Moves all extremities. Sensation intact. Psychiatric: Cooperative and interactive. Normal mood and affect. Constitutional Vital Signs, click to edit/add: Last Vital Signs Temp 98.2 F 05/08/25 12:26 Pulse 103 H 05/08/25 12:26 Resp 05/08/25 12:26 BP 136/86 05/08/25 12:26 Pulse Ox 97 05/08/25 12:26 O2 Del Method Room Air 05/08/25 12:26 Course Vital Signs Vital signs: Vital Signs Temperature 98.2 F 05/08/25 12:26 Pulse Rate 103 H 05/08/25 12:26 Respiratory Rate 05/08/25 12:26 Blood Pressure 136/86 05/08/25 12:26 Pulse Oximetry 97 05/08/25 12:26 Oxygen Delivery Method Room Air 05/08/25 12:26 Temperature 98.2 F 05/08/25 12:26 Pulse Rate 103 H 05/08/25 12:26 Respiratory Rate 05/08/25 12:26 Blood Pressure 136/86 05/08/25 12:26 Pulse Oximetry 97 05/08/25 12:26 Oxygen Delivery Method Room Air 05/08/25 12:26 MDM - Allergic Reaction MDM Narrative Medical decision making narrative: EKG showing sinus rhythm with a heart rate of [address] elevation or depression Upon arrival the patient was provided with the steroids initially Solu-Medrol 125 mg IV in addition to Pepcid and Benadryl Patient also provided with IV fluid and IM epinephrine 0.3 mg IM The patient after 1 hour and a half has been feeling much better all his symptoms mostly resolved except for mild rash on the right posterior back The patient right now we will continue treatment with Benadryl steroid and Pepcid for the next 3 to 5 days in addition to provided with the EpiPen to go home with Patient instructed to monitor symptoms The patient is to follow up with primary care physician in next 2-3 days or to return to the emergency department should any of the signs or symptoms worsen or new symptoms develop. The patient agrees with the following Diagnosis and Treatment plan and the patient will be discharged home. Discharge Plan Discharge Chief Complaint: Allergic Reaction Clinical Impression: Allergic reaction, Bee sting allergy Patient Disposition: Home, Self-Care Time of Disposition Decision: 14:07 Condition: Good Prescriptions / Home Meds: New epinephrine [EpiPen] 0.3 mg/0.3 mL auto-injector 0.3 mg IM ONCE PRN (Reason: allergic symptoms) Qty: 2 0RF Rx Instructions: for 2 doses prednisone 20 mg tablet 40 mg PO DAILY 5 Days Qty: 10 0RF famotidine [Pepcid] 20 mg tablet 20 mg PO BID Qty: 10 0RF diphenhydramine HCl 25 mg capsule 25 mg PO Q8H Qty: 10 0RF Print Language: [place] Instructions: General Allergic Reaction (ED) Referrals: WHITNEY CHAKRABORTY [Primary Care Provider, Unknown] - 1 week
--- NOTE | 2025-05-08 14:22 | PC.NURSE ---
1340- pt reports feeling much better - hives are almost all gone, swelling lessened, and denies any pain/itching. dr swan made aware
== END 2025-05-08 14:25 | disposition home or self-care (01) ==
PROVIDERS: Emergency Provider Emergency Medicine; PCP Nurse Practitioner Family
DX: T63.441A Toxic effect of venom of bees, accidental (unintentional), initial encounter (principal); L25.8 Unspecified contact dermatitis due to other agents
CPT/HCPCS: 93005; 96361; 96372; 96374; 96375; 99284; J0169; J1200; J2405; J2919; J3490

== ENCOUNTER 2025-05-12 12:59 | Outpatient (OUT) | payer BC, SELFPAY ==
--- OUTSIDE RECORDS SUMMARY | 2025-05-12 13:07 | XMS_ITS | CCD ---
Author Organization [facility] Care Team Providers Care Skiver Sock Linings Name Role Phone CARLEE LEMUS Attending Unavailable SAM, CARLEE Admitting Unavailable SAMCARLEE STEIN Attending Unavailable ALLAN, CARLEE Admitting Unavailable Lucian Capone III Primary Care Physician Lucian Capone Attending Unavailable Lucian Capone Admitting Unavailable MARCELLUS CASTANEDA Attending Unavailable MARCELLUS CASTANEDA Attending Unavailable Valarie Lovelace APRN Primary Care Provider Patti Byrne CMA Attending Provider Unavaila Valarie Lockhart APRN Attending Provider Medications Current Medications Medication Drug Class(es) Dates Sig (Normalized) Sig (Original) Acetaminophen / HYDROcodone (2 sources) Opioid Agonist Start: 07-19-2012 Vicodin 500 mg-5 mg Tab 0, 1 tab(s), Oral, q6hr, 20 tab(s), Refill(s) 0, 0, Take one tab by mouth every six hours as needed for pain, Print Requisition Start Date: 07/19/12 Status: Ordered diphenhydrAMINE hydrochloride 25 mg oral capsule (1 source) Histamine-1 Receptor Antagonist Start: 05-10-2025 take 1 capsule by mouth three times daily Diphenhydramine Hcl (Banophen) 25 mg capsule Active 25 MG PO Three times daily May 10, 2025 12:00am Complies with drug therapy [id number] 0.3 ml EPINEPHrine 1 mg/ml auto-injector (1 source) alpha-Adrenergic Agonist, beta-Adrenergic Agonist, Catecholamine Start: 05-10-2025 Epinephrine 0.3 mg/0.3 mL auto-injector Active 0.3 MG IM as needed May 10, 2025 12:00am Complies with drug therapy famotidine 20 mg oral tablet (1 source) Histamine-2 Receptor Antagonist Start: 05-10-2025 take 1 tablet by mouth twice daily Famotidine 20 mg tablet Active 20 MG PO Twice daily May 10, 2025 12:00am Complies with drug therapy melatonin 5 mg oral capsule (3 sources) Start: 12-21-2024 take 1 capsule by mouth once daily at bedtime Melatonin 5 mg capsule Active 5 MG PO Daily at bedtime December 21, 2024 12:00am Complies with drug therapy naproxen 500 mg oral tablet (2 sources) Nonsteroidal Anti-inflammatory Drug Start: 07-19-2012 take 1 tablet by mouth twice daily Naprosyn 500 mg Tab 500 mg = 1 tab(s), Oral, BID, # 20 tab(s), Refills(s) 0, 0, Print Requisition Start Date: 07/19/12 Status: Ordered predniSONE 20 mg oral tablet (1 source) Start: 05-10-2025 take 2 tablets by mouth once Prednisone 20 mg tablet Active 40 MG PO Once May 10, 2025 12:00am Complies with drug therapy Problems Problem Classification Problem Date Documented Da te Episodic/Chronic Allergic reactions (2 sources) Allergy to honey bee venom; Translations: [Bee allergy status] 05-10-2025 Episodic Diabetes mellitus without complication (1 source) Impaired fasting glycemia; Translations: [Impaired fasting glucose] 01-03-2025 Episodic Other male genital disorders (2 sources) Male erectile dysfunction, unspecified; Translations: [Erectile dysfunction] 05-10-2025 Chronic Other nutritional; endocrine; and metabolic disorders (2 sources) Body mass index 30+ - obesity; Translations: [Obesity, unspecified] 12-21-2024 Chronic Other nutritional; endocrine; and metabolic disorders (1 source) Obesity, unspecified; Translations: [Obesity, unspecified] 12-21-2024 Chronic Other screening for suspected conditions (not mental disorders or infectious disease) (8 sources) Patient encounter status; Translations: [Encounter for screening for malignant neoplasm of prostate] 12-21-2024 Episodic Poisoning by nonmedicinal substances (2 sources) Poisoning due to insect venom; Translations: [Toxic effect of venom of hornets, accidental (unintentional), initial encounter] 05-10-2025 Episodic Residual codes; unclassified (4 sources) Obstructive sleep apnea (adult) (pediatric); Translations: [OBSTRUCTIVE SLEEP APNEA] Onset: 04-30-2021 Chronic Residual codes; unclassified (1 source) Idiopathic hypersomnia with long sleep time; Translations: [IDIO HYPERSOMNIA W/LONG SLEEP TIME] Onset: 03-07-2021 Chronic Residual codes; unclassified (3 sources) Obstructive sleep apnea syndrome; Translations: [Obstructive sleep apnea (adult) (pediatric)] 12-21-2024 Chronic Results Test Name Value Interpretation Reference Range Facil ity Basophils Auto (Bld) [#/Vol] on 12-23-2024 Basophils (Bld) [#/Vol] Automated basophil count 0.0-0.1 [facility] Basophils/100 WBC Auto (Bld) on 12-23-2024 Basophils/100 WBC (Bld) Automated basophil % 0.2-2.0 [facility] Cholesterol in LDL Calc [Mas s/Vol]on 12-23-2024 Cholesterol in LDL [Mass/Vol] Cholesterol in LDL [Mass/volume] in Serum or Plasma by calculation [facility] Comment on above: <100 mg/dl [id number] 0-129 mg/dl NEAR OR ABOVE [id number] mg/dl BORDERLINE [id number] mg/dl HIGH>190 mg/dl VERY HIGH Cholesterol in VLDL Calc [Ma ss/Vol]on 12-23-2024 Cholesterol in VLDL [Mass/Vol] Cholesterol in VLDL [Mass/volume] in Serum or Plasma by calculation [facility] Eosinophils/100 WBC Auto (Bl d)on 12-23-2024 Eosinophils/100 WBC (Bld) Automated eosinophil % 0.9-7.0 [facility] Erythrocyte distribution wid th Auto (RBC) [Ratio]on 12-23-2024 Erythrocyte distribution width (RBC) [Ratio] Erythrocyte distribution width [Ratio] by Automated count 11.0-15.0 [facility] Estimated glomerular filtrat ion rate (GFR) non- Americanon 12-23-2024 GFR/1.73 sq M.predicted among non-blacks MDRD (S/P/Bld) [Vol rate/Area] Estimated glomerular filtration rate (GFR) non- Low >=60 mL/min/1.73m 2 [facility] Globulin Calc (S) [Mass/Vol] on 12-23-2024 Globulin (S) [Mass/Vol] Serum globulin measurement by calculation (mass/volume) [facility] Hematocrit Auto (Bld) [Volum e fraction]on 12-23-2024 Hematocrit (Bld) [Volume fraction] Hematocrit [Volume Fraction] of Blood by Automated count 42.0-54.0 [facility] Hemoglobin [Mass/volume] in Bloodon 12-23-2024 Hemoglobin (Bld) [Mass/Vol] Hemoglobin [Mass/volume] in Blood 14.0-18.0 [facility] Laboratory - Chemistry and C hemistry - challengeon 12-23-2024 Albumin [Mass/Vol] 4.1 g/dL 3.4-5.0 [facility] ALP [Catalytic activity/Vol] 64 U/L 46-116 [facility] ALT [Catalytic activity/Vol] 47 U/L 16-63 [facility] AST [Catalytic activity/Vol] 26 U/L 15-37 [facility] Bilirubin [Mass/Vol] 0.5 mg/dL 0.2-1.0 [facility] Calcium [Mass/Vol] 9.3 mg/dL 8.5-10.1 [facility] Chloride [Moles/Vol] 107 mmol/L 98-107 [facility] Cholesterol [Mass/Vol] 170 mg/dL <=200 [facility] Cholesterol in HDL [Mass/Vol] 59 mg/dL 40-60 [facility] Comment on above: > or =60 mg/dl - LOW CARDIOVASCULAR RISK<40 mg/dl - HIGH CARDIOVASCULAR RISK CO2 [Moles/Vol] 26.9 mmol/L 21.0-32.0 [facility] Creatinine [Mass/Vol] 1.35 mg/dL High 0.70-1.30 [facility] GFR/1.73 sq M.predicted MDRD (S/P/Bld) [Vol rate/Area] mL/min/{1.73_m2} >=60 mL/min/1.73m 2 [facility] Glucose [Mass/Vol] 103 mg/dL 74-106 [facility] Potassium [Moles/Vol] 4.0 mmol/L 3.5-5.1 [facility] Protein [Mass/Vol] 7.2 g/dL 6.4-8.2 [facility] Sodium [Moles/Vol] 141 mmol/L 136-145 [facility] Triglyceride [Mass/Vol] 102 mg/dL <=150 [facility] Urea nitrogen [Mass/Vol] 18.0 mg/dL 7.0-18.0 [facility] Urea nitrogen/Creatinine [Mass ratio] 13.3 mg/mg [facility] Laboratory - Hematology and Cell countson 12-23-2024 Immature granulocytes/100 WBC (Bld) 0.2 % 0.0-0.5 [facility] Leukocytes [#/volume] correc eleno for nucleated erythrocytes in Blood by Automated counon 12-23-2024 WBC corrected for nucl RBC Auto (Bld) [#/Vol] Leukocytes [#/volume] corrected for nucleated erythrocytes in Blood by Automated coun 4.0-11.0 [facility] Lymphocytes Auto (Bld) [#/Vo l]on 12-23-2024 Lymphocytes (Bld) [#/Vol] Lymphocytes [#/volume] in Blood by Automated count 1.2-3.8 [facility] Lymphocytes/100 WBC Auto (Bl d)on 12-23-2024 Lymphocytes/100 WBC (Bld) Lymphocytes/100 leukocytes in Blood by Automated count 20.5-60.0 [facility] MCH Auto (RBC) [Entitic mass ]on 12-23-2024 MCH (RBC) [Entitic mass] MCH [Entitic mass] by Automated count 25.9-34.0 [facility] MCHC Auto (RBC) [Mass/Vol]on 12-23-2024 MCHC (RBC) [Mass/Vol] MCHC [Mass/volume] by Automated count 29.9-35.2 [facility] MCV Auto (RBC) [Entitic vol] on 12-23-2024 MCV (RBC) [Entitic vol] MCV [Entitic volume] by Automated count 80.0-94.0 [facility] Monocytes Auto (Bld) [#/Vol] on 12-23-2024 Monocytes (Bld) [#/Vol] Automated blood monocyte count 0.3-0.8 [facility] Monocytes/100 WBC Auto (Bld) on 12-23-2024 Monocytes/100 WBC (Bld) Automated monocyte % 1.7-12.0 [facility] Neutrophils Auto (Bld) [#/Vo l]on 12-23-2024 Neutrophils (Bld) [#/Vol] Neutrophils [#/volume] in Blood by Automated count 1.4-6.5 [facility] Neutrophils/100 WBC Auto (Bl d)on 12-23-2024 Neutrophils/100 WBC (Bld) Automated neutrophil % 43.0-75.0 [facility] No Panel Informationon 12-23 Eosinophils # (Auto) 0.3 10 3/uL 0.0-0.7 [facility] Immature Granulocyte # (Auto) 0.01 10 3/uL 0.00-0.03 [facility] Prostate Specific Antigen Screen 1.75 ng/mL <=4.00 [facility] Platelet mean volume Auto (B ld) [Entitic vol]on 12-23-2024 Platelet mean volume (Bld) [Entitic vol] Platelet mean volume [Entitic volume] in Blood by Automated count Low 9.5-13.5 [facility] Platelets Auto (Bld) [#/Vol] on 12-23-2024 Platelets (Bld) [#/Vol] Platelets [#/volume] in Blood by Automated count 150-450 [facility] RBC Auto (Bld) [#/Vol]on RBC (Bld) [#/Vol] Erythrocytes [#/volume] in Blood by Automated count 4.70-6.10 [facility] Serum or plasma albumin/glob ulin mass ratioon 12-23-2024 Albumin/Globulin [Mass ratio] Serum or plasma albumin/globulin mass ratio [facility] Serum or plasma anion gap de terminationon 12-23-2024 Anion gap [Moles/Vol] Serum or plasma anion gap determination [facility] Serum or plasma total choles terol/high density lipoprotein (HDL) cholesterol mass bonifacio 12-23-2024 Cholesterol.total/Cho lesterol in HDL [Mass ratio] Serum or plasma total cholesterol/high density lipoprotein (HDL) cholesterol mass rat [facility] Comment on above: 3.3 - 4.4 LOW [...] in mGy = na DAP = na [facility] Consent for Treatmenton Consent for Treatment [id number] 30 [id number] #1.00CD:127 Normal [facility] Physician Orderon 02-05-2023 Physician Order [id number] 6#1.00CD:127 [facility] Vital Signs Date Time Vital Sign Value Performing Clinician Yolis jacobson 05-10-2025 14:25-0400 Body height 172.72 cm Valarie Lovelace APRN Work Phone: [facility] 05-10-2025 14:25-0400 Body mass index (BMI) [Ratio] 35.4 kg/m2 Valarie Lovelace APRN Work Phone: [facility] 05-10-2025 14:25-0400 Body temperature 97.5 [degF] Valarie Lovelace APRN Work Phone: [facility] 05-10-2025 14:25-0400 Body weight 105.68 kg Valarie Lovelace APRN Work Phone: [facility] 05-10-2025 14:25-0400 Diastolic blood pressure 68 mm[Hg] Valarie Lovelace APRN Work Phone: [facility] 05-10-2025 14:25-0400 Heart rate 71 /min Valarie Lovelace APRN Work Phone: [facility] 05-10-2025 14:25-0400 SaO2% (BldA) [Mass fraction] 96 % Valarie Lovelace APRN Work Phone: [facility] 05-10-2025 14:25-0400 Systolic blood pressure 124 mm[Hg] Valarie Lovelace APRN Work Phone: [facility] 12-21-2024 08:51-0400 Body height 172.72 cm [facility] 12-21-2024 08:51-0400 Body mass index (BMI) [Ratio] 36.2 kg/m2 [facility] 12-21-2024 08:51-0400 Body temperature 97.6 [degF] [facility] 12-21-2024 08:51-0400 Body weight 108.18 kg [facility] 12-21-2024 08:51-0400 Diastolic blood pressure 68 mm[Hg] [facility] 12-21-2024 08:51-0400 Heart rate 77 /min [facility] 12-21-2024 08:51-0400 SaO2% (BldA) [Mass fraction] 97 % [facility] 12-21-2024 08:51-0400 Systolic blood pressure 118 mm[Hg] [facility] Encounters Encounter Date Encounter Type Care Provider Facility Start: 05-10-2025 End: 05-10-2025 ambulatory Valarie Lovelace APRN Work Phone: [facility] Work Phone: Start: 05-10-2025 End: 05-10-2025 Patient encounter procedure Valarie Lovelace APRN [facility] Work Phone: Start: 05-10-2025 Non-patient / Non-visit Patti Hyman [facility] Work Phone: Start: 01-03-2025 End: 01-03-2025 ambulatory [facility] Work Phone: Start: 01-03-2025 End: 01-03-2025 Patient encounter procedure [facility] Work Phone: Start: 12-23-2024 Non-patient / Non-visit [facility] Work Phone: Start: 12-21-2024 Patient encounter status [facility] Start: 12-21-2024 End: 12-21-2024 ambulatory [facility] Work Phone: Start: 12-21-2024 End: 12-21-2024 Encounter for general adult medical examination without abnormal findings [facility] Start: 12-21-2024 End: 12-21-2024 Patient encounter procedure [facility] Work Phone: Start: 12-16-2023 End: 12-16-2023 ambulatory MARCELLUS L LEONEL Not Available Start: 09-23-2023 End: 09-23-2023 ambulatory MARCELLUS L LEONEL Not Available Start: 02-10-2023 End: 02-11-2023 Pre-admission assessment LucianLise Capone III [facility] Start: 02-05-2023 End: 02-06-2023 ambulatory Lucian Capone Facility:[facility] Start: 02-05-2023 End: 02-05-2023 Patient encounter procedure LucianLise Capone III [facility] Start: 04-30-2021 End: 05-01-2021 ambulatory [facility] Facility: Start: 03-05-2021 End: 03-06-2021 ambulatory [facility] Facility: Plan of Treatment Date Care Activity Detail Author Comprehensive metabo lic 2000 panel - Serum or Plasma [facility] Payers Date Payer Category Payer Unknown [id number] 1975 Unknown [id number] [id number] [id number] 1975 Unknown [id number] [id number] [id number] 1975 Unknown [id number] 1975 Unknown [id number] [id number] [id number] 1975 Unknown [id number] 2.16.84 [id number] 1959 Private Health Insurance [id number] Social History Date Type Detail Facility Tobacco smoking status No Smokin g Status Entered [facility] Sex Assigned At Male [facility] Work Phone: Start: 12-21-2024 End: 01-03-2025 Sex Male (finding) [facility] Start: 1975 Sex Assigned At Male [facility] Evaluation note 12-21-2024 Note Date & Type Note Facility 12-21-2024 Evaluation note Diagnosis Onset Date Resolution Obesity (BMI 30-39.9) acute Apr 2024 8:45am Screening for colon cancer acute December 21, 2024 8:45am Screening PSA (prostate specific antigen) acute December 21 8:45am Wellness examination acute 2024 8:45am [facility] Work Phone: Evaluation + Plan note Note Date & Type Note Facility Evaluation + Plan note Future Appointments Appointment Date:02/10/2023 10:15:00 AM Scheduled Provider: Location:[facility] [place] Appointment Type:PT Eval (FT) [facility] Evaluation note Note Date & Type Note Facility Evaluation note Diagnosis Onset Date Resolution Screening PSA (prostate specific antigen) acute December 21 8:45am Wellness examination acute Apri l 2024 8:45am [facility] Work Phone: Evaluation note Note Date & Type Note Facility Evaluation note Diagnosis Onset Date Resolution Allergy to honey bee venom acute May 10 025 2:20pm Erectile dysfunction acute May 2:20pm Sting of hornets, wasps, and bees causing poisoning and toxic reactions acute May 10 2:20pm [facility] Work Phone: Hospital course Narrative Note Date & Type Note Facility Hospital course Narrative No data available for this section [facility] Discharge instructions Note Date & Type Note Facility Hospital Discharge instructions No data available for this section [facility] Progress note Note Date & Type Note Facility Progress note No data available for this section [facility] Reason for referral (narrative) Note Date & Type Note Facility Reason for referral (narrative) No reason for referral information available [facility] Work Phone: Summary Purpose Family History No Family History [...] 2024 8: 45am Chief Complaint Admit Date Amb Documentation May 10, 2025 7:48am [facility] ER f/u May 10, 2025 2:20pm Reason for Visit Admit Date Allergy to honey bee venom May 2:20pm Erectile dysfunction May 10, 2025 2:20pm Sting of hornets, wasps, and bees causing poisoning and toxic reactions May 10, 2025 2:20pm Additional Source Comments (unrecognized sect ion and content) No Status Records FoundNo Status Records FoundNo Status Records Found INFORMATION SOURCE (unrecogn ized section and content) DATE CREATED AUTHOR 05/09/2021 [facility] DATE CREATED AUTHOR AUTHOR'S ORGANIZ ATION 02/16/2023 [facility] DATE CREATED AUTHOR AUTHOR'S ORGANIZ ATION 12/17/2023 [facility] EPIC Patient Care team informatio n (unrecognized section and content) Team Status: Active Member Role Status Dates Lucian Capone III , DO Primary Care Provider Active Team Status: Inactive Member Role Status Dates Lucian Capone III , Primary Care Provider Active Start: December 21, 2024 End: December 21, 2024 Valarie Lovelace APRN NP-C Attending Provider Act loyda Start: December 21, 2024 End: December 21, 2024 Team Status: Active Member Role Status Dates Valarie Lovelace APRN NP-C Primary Care Provider Active Team Status: Active Member Role Status Dates Lucian Capone III , Primary Care Provider Active Start: December 23, 2024 JENNIFER Joyce Attending Provider Act loyda Start: December 23, 2024 Team Status: Inactive Member Role Status Dates JENNIFER Joyce Primary Care Provider, Attending Provider Active Start: January 03, 2025 End: January 03, 2025 Team Status: Active Member Role Status Dates Valarie Lovelace APRN NP-C Primary Care Provider Active Start: May 102024 Patti Byrne CMA Attending Provider Active Start: May 10, 2025 Team Status: Inactive Member Role Status Dates Valarie Lovelace APRN NP-Jeferson Primary Care Provider Active Start: May 102024 End: May 10, 2025 Valarie Lovelace APRN NP-Jeferson Attending Provider Active Start: May End: May 10, 2025 Goals (unrecognized section and content) Goals [...] BE BASED ON THE PRIMARY CLINICAL RECORDS. [email or web address]. provides no warranty or guarantee of the accuracy or completeness of information in this document.
== END 2025-05-12 13:00 | disposition home or self-care (01) ==
LOC: LAB 13:00
PROVIDERS: PCP Nurse Practitioner Family; Visit Provider Nurse Practitioner Family
DX: N52.9 Male erectile dysfunction, unspecified (principal)
CPT/HCPCS: 36415; 84402; 84403